=== PATIENT | male | born 1990 | race Caucasian/White ===

== ENCOUNTER 2021-05-01 02:41 | Emergency (ER) | payer MEDICAID, OTHER, SELFPAY ==
[2021-05-01 02:54] VITALS: BP 136/92; BP 140/82; PULSE 91; PULSE 92; RESP 16; TEMP 36.9; O2SAT 96; O2SAT 98; BMI 25.0
--- NOTE | 2021-05-01 02:54 | ED.ALCOHOL ---
HPI - Alcohol General Chief Complaint: ETOH/Substance Use Stated Complaint: ETOH Time Seen by Provider: 05/01/21 02:52 Source: patient and EMS Mode of arrival: EMS Limitations: no limitations History of Present Illness HPI narrative: Patient is brought to the emergency room by EMS for alcohol intoxication. EMS reports that the patient was completely drawn, knocking at the door of a stranger house, who called PD. PD called EMS. Patient reports no injuries, states he used marijuana, and got drunk using beer. Otherwise, patient has no complaints MD complaint: alcohol intoxication Related Data Allergies Allergy/AdvReac Type Severity Reaction Status Date / Time No Known Allergies Allergy Verified 05/01/21 02:58 Review of Systems Review of Systems: Constitutional : No Weight loss, No Fever, No Chills, No Night Sweats, No Fatigue, No Malaise ENT/Mouth : No Hearing loss, No Ear Pain, No Nasal Congestion, No Sinus Pain, No Hoarseness, No sore throat, No Rhinorrhea, No Swallowing Difficulty Eyes: No Eye Pain, No Swelling, No Redness, No Foreign Body, No Discharge, No Vision Changes Cardiovascular : No Chest Pain, No SOB, No Dyspnea on Exertion, No Orthopnea, No Edema, No Palpitations Respiratory : No Cough, No Sputum, No Wheezing, No Smoke Exposure, No Dyspnea Gastrointestinal : No Nausea, No Vomiting, No Diarrhea, No Constipation, No abdominal Pain, No Hematochezia, No Melena Genitourinary : no irregular bleeding, No Dysuria, No Urinary Frequency, No Hematuria, No Urinary Incontinence, No Urgency, No Flank Pain, No Urinary Flow Changes, No Hesitancy Musculoskeletal : No joint pain, No Myalgias, No Joint Swelling Skin : No Skin Lesions, No rash Neuro : No Weakness, No Numbness, No Paresthesias, No Loss of Consciousness, No Dizziness, No Headache Psych : No Anxiety/Panic, No Depression, No SI/HI, complaining of alcohol intoxication Heme/Lymph: No Bruising, No Bleeding,No Lymphadenopathy Endocrine : No Polyuria, No Polydipsia, No Temperature Intolerance PMFSH Social History Social History Advance Directives: No Physical Exam ED Vital Signs: Vital Signs - 24 hr 05/01/21 02:54 05/01/21 02:58 05/01/21 05:16 Temperature 98.5 F Pulse Rate 91 90 Respiratory Rate 16 16 16 Blood Pressure 136/92 H Pulse Oximetry 96 97 05/01/21 05:47 Temperature 98.4 F Pulse Rate 93 Respiratory Rate 16 Blood Pressure 149/70 H Pulse Oximetry 97 BMI result Body Mass Index 25.0 Const Other: Appearance: Alert. Oriented X3. No acute distress. Intoxicated but calm and cooperative Eyes: Pupils equal, round and reactive to light. ENT: Pharynx normal. Neck: Normal inspection. Neck supple. No lymph nodes noted. No crepitus CVS: Normal heart rate and rhythm. Pulses normal. Normal S1 and S2 Respiratory: No respiratory distress. Breath sounds normal. No Wheezing. No rales Abdomen: Soft and nontender. No rigidity. No distention. Skin: Skin warm and dry. Normal skin color. Normal skin turgor. Extremities: No lower extremity edema. No lower extremity edema. No Lacerations. No Rash Neuro: Oriented X 3. No motor deficit. No sensory deficit. Moving all extermities. No slurred speech. Moves all extremities Psych: Calm, cooperative, seems a bit intoxicated Course Course Course Narrative: Patient reports no injuries, patient is calm, cooperative, still somewhat intoxicated. Patient will metabolize to freedom and then be discharged. Patient has no sober ride at this time. Physician observation started at 03:00 07:30 patient awake, alert, clinically sober, steady gait. Patient refer discharge Discharge Plan Discharge Clinical Impression: Alcoholic intoxication Patient Disposition: Home, Self-Care Instructions: Abuse of Alcohol (ED) Additional Instructions: Please follow-up with your primary care physician tomorrow. If you have any worsening or new symptoms, please return to the emergency room or call 911
[2021-05-01 02:58] VITALS: PULSE 90; RESP 16; O2SAT 97
[2021-05-01 05:16] VITALS: RESP 16
[2021-05-01 05:47] VITALS: BP 149/70; PULSE 93; RESP 16; TEMP 36.9; O2SAT 97
[2021-05-01 07:38] VITALS: BP 146/83; PULSE 94; RESP 18; O2SAT 98
== END 2021-05-01 07:41 | disposition home or self-care (01) ==
LOC: HO.ED 06:25
PROVIDERS: Emergency Provider Emergency Medicine
DX: F10.920 Alcohol use, unspecified with intoxication, uncomplicated (principal); Y90.9 Presence of alcohol in blood, level not specified; F12.90 Cannabis use, unspecified, uncomplicated
CPT/HCPCS: 99284; 99285